=== PATIENT | female | born 1975 | race Hispanic/Latino ===

== ENCOUNTER 2017-12-18 09:18 | Emergency (ER) | payer BC ==
[~2017-12-18] VITALS: Ht 149.9 cm; Wt 65.8 kg
[2017-12-18] MEDS ORDERED: PRAVASTATIN SOD20 MG PO (09:48)
[2017-12-18] MEDS ORDERED: METOPROLOL TART25 MG PO (09:48)
[2017-12-18] MEDS ORDERED: ASPIRIN325 MG PO (09:48)
[2017-12-18 10:18] VITALS: BP 129/61
[2017-12-18] MEDS ORDERED: ONDANSETRON HCL 4 MG ORAL DISINTEGRATING TAB PO ONE (10:30)
== END 2017-12-18 10:24 | disposition home or self-care (01) ==
LOC: FSED 09:18
DX: R07.89 Other chest pain (principal); D64.9 Anemia, unspecified; I10 Essential (primary) hypertension; E78.5 Hyperlipidemia, unspecified
CPT/HCPCS: 82553; 84484; 85025; 85379; 93005; 99283

== ENCOUNTER → 2023-01-27 | Outpatient (CLI) | payer BC ==
[~2023-01-27] MED LIST: ASPIRIN325 MG PO; METOPROLOL TART25 MG PO; PRAVASTATIN SOD20 MG PO
== END ==
LOC: RAD 15:33
PROVIDERS: ATTEND Internal Medicine
DX: M25.572 Pain in left ankle and joints of left foot (principal)

== ENCOUNTER → 2024-08-15 | Outpatient (REF) | payer BC | LOC: NM 07:52 | PROVIDERS: ATTEND Nurse Practitioner | DX: K76.0 Fatty (change of) liver, not elsewhere classified (principal) | CPT/HCPCS: 78227; A9537 ==

== ENCOUNTER → 2024-09-09 | Day surgery (SDC) | payer BC ==
[2024-09-05 11:24] LABS: BASOPHILS % 0.3 % (0.0-1.0); EOSINOPHILS # (AUTO) 0.1 (0.0-0.4); EOSINOPHILS % 1.4 % (0.0-6.0); HEMATOCRIT 44.2 % (34.2-44.1); HEMOGLOBIN 14.1 g/dL (12.0-16.0); LYMPHOCYTES % 30.9 % (18.0-39.1); MEAN CORPUSCULAR HGB CONC 31.9 g/dL (31-35); MEAN CORPUSCULAR VOLUME 100.5 fL (81-99); MONOCYTES # (AUTO) 0.4 (0.2-0.8); MONOCYTES % 6.6 % (4.4-11.3); NEUTROPHILS # (AUTO) 3.9 (2.1-6.9); NEUTROPHILS % 60.5 % (38.7-80.0); PLATELET COUNT 292 x10e3/uL (140-360); RED CELL DISTRIBUTION WIDTH 12.7 % (11.7-14.4); WHITE BLOOD COUNT 6.51 x10e3/uL (4.8-10.8)
[~2024-09-09] MED LIST changes: +B-121000 MC2; +CLOPIDOGREL75 MG PO; +DILTIAZEM 24HR120 M2 PO; +LIDOCAINE HCL 2% LOCAL INJ 5 ML SDV VIAL INJ ONE; +NITROFURANTOIN100 MG PO; +PHENAZOPYRIDIN100 MG PO; +PREBIOTIC; +PROPOFOL IV EMULSION 10 MG/ML 20 ML VIAL ONE; +SUMATRIPTAN SUC25 MG PO; +SYMBICORT 80-10.2 GM INH; +TYLENOL325 MG PO
[2024-09-09] MEDS: LACTATED RINGER'S 1,000 ML ONE (12:04)
[2024-09-09 14:40] VITALS: BP 102/65; PULSE 92; RESP 14; O2SAT 97
== END | disposition home or self-care (01) ==
LOC: OR 11:41
PROVIDERS: ATTEND Internal Medicine Gastroenterology
DX: Z12.11 Encounter for screening for malignant neoplasm of colon (principal); D12.0 Benign neoplasm of cecum; K28.9 Gastrojejunal ulcer, unspecified as acute or chronic, without hemorrhage or perforation; K76.0 Fatty (change of) liver, not elsewhere classified; J45.909 Unspecified asthma, uncomplicated; I25.10 Atherosclerotic heart disease of native coronary artery without angina pectoris; I25.2 Old myocardial infarction; E78.5 Hyperlipidemia, unspecified; Z01.812 Encounter for preprocedural laboratory examination; Z79.02 Long term (current) use of antithrombotics/antiplatelets; Z79.899 Other long term (current) drug therapy; Z86.73 Personal history of transient ischemic attack (TIA), and cerebral infarction without residual deficits; Z95.5 Presence of coronary angioplasty implant and graft
CPT/HCPCS: 36415; 45380; 85025; J2003; J2704; J7121; 45378